=== PATIENT | female | born 1995 | race Hispanic/Latino ===

== ENCOUNTER 2018-03-09 10:25 | Outpatient (CLI) | payer MEDICAID ==
[2018-03-09] MEDS ORDERED: LACTATED RINGERS 1,000 ML ONE (13:23)
== END 2018-03-09 13:37 | disposition home or self-care (01) ==
LOC: TRG 10:25
PROVIDERS: ATTEND Obstetrics & Gynecology
DX: O47.03 False labor before 37 completed weeks of gestation, third trimester (principal); O10.013 Pre-existing essential hypertension complicating pregnancy, third trimester; Z3A.36 36 weeks gestation of pregnancy
CPT/HCPCS: 59025; J7120

== ENCOUNTER 2018-03-30 09:15 | Outpatient (CLI) | payer MEDICAID ==
[2018-03-30] MEDS ORDERED: SUBLIMAZE IV PRN (11:47)
[2018-03-30] MEDS ORDERED: STADOL IV PRN (11:47)
[2018-03-30] MEDS ORDERED: BRETHINE IVP PRN (11:47)
[2018-03-30] MEDS ORDERED: MINERAL OIL PO PRN (11:47)
[2018-03-30] MEDS ORDERED: XYLOCAINE 2% INFILTRATI ONE (11:47)
[2018-03-30] MEDS ORDERED: BRETHINE SUB-Q PRN (11:47)
[2018-03-30] MEDS ORDERED: PITOCin/NS 20 UNIT/1000ML DRIP 20 UNITS/1,000 ML BAG IV SCH (12:00)
[2018-03-30] MEDS ORDERED: PITOCin/NS 30 UNIT/500ML 30 UNITS/500 ML BAG IV SCH ×2 (12:00)
[2018-03-30] MEDS ORDERED: LACTATED RINGERS 1,000 ML IV SCH (12:00)
[2018-03-30 13:32] LABS: Hematocrit 29.3 % (30.3-42.9); Hemoglobin 9.7 gm/dl (10.1-14.3); Mean Corpuscular HGB Conc 33 % (30-34); Mean Corpuscular Volume 71 fl (79-97); Platelet Count 200 K/mm3 (140-440); Red Blood Count 4.16 M/mm3 (3.65-5.03); Red Cell Distribution Width 15.7 % (13.2-15.2)
[2018-03-30 13:33] LABS: Mean Corpuscular Hemoglobin 23 pg (28-32)
--- NOTE | 2018-03-30 18:07 | History and Physical Report ---
History of Present Illness Date of examination: 03/30/18 History of present illness: 22 yo G0101 LMP EDC 03/31/18 @ 36.1 weeks gestation presented to [facility] for r/o labor this am 3cm, ambulated for 2 hours, progressed to 4cm. Currently 5cm. Transfer into care at 36 weeks gestation. History of PIH & IUGR in previous with 36 week induction. Questionable history of throid dysfunction. Abnl pap with ASCUS HPV. GBS negative. 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 Family/Genetic History: hypertension Social history: no significant social history - Obstetrical History Expected Date of Delivery: 03/31/18 Actual Gestation: 39 Week(s) 6 Day(s) : 2 Para: 1 Hx # Term Pregnancies: 0 Number of Pregnancies: 1 Number of Living Children: 1 Medications and Allergies Allergies Allergy/AdvReac Type Severity Reaction Status Date / Time No Known Allergies Allergy Unverified 03/09/18 11:24 Home Medications Medication Instructions Recorded Confirmed Last Taken Type Ferrous Sulfate [Feosol] 325 mg PO BID 03/09/18 03/09/18 1 Day Ago History ~03/08/18 Active Meds: Active Medications Butorphanol Tartrate (Stadol) 2 mg IV Q2H PRN PRN Reason: Pain , Severe (7-10) Ephedrine Sulfate (Ephedrine Sulfate) 10 mg IV Q2M PRN PRN Reason: Hypotension Fentanyl (Sublimaze) 100 mcg IV Q2H PRN PRN Reason: Labor Pain Lactated Ringer's (Lactated Ringers) 1,000 mls @ 125 mls/hr IV DIRECT JOSHUA Oxytocin/Sodium Chloride (Pitocin/Ns 20 Unit/1000ml Drip) 20 units in 1,000 mls @ 125 mls/hr IV DIRECT JOSHUA Oxytocin/Sodium Chloride (Pitocin/Ns 30 Unit/500ml) 30 units in 500 mls @ 1 mls /hr IV TITR JOSHUA; Protocol Oxytocin/Sodium Chloride (Pitocin/Ns 30 Unit/500ml) 30 units in 500 mls @ 4 mls /hr IV TITR JOSHUA; Protocol Mineral Oil (Mineral Oil) 30 ml PO QHS PRN PRN Reason: Constipation Terbutaline Sulfate (Brethine) 0.25 mg SUB-Q ONCE PRN PRN Reason: Hyperstimulation/Hypertonicity Terbutaline Sulfate (Brethine) 0.25 mg IVP ONCE PRN PRN Reason: Hyperstimulation/Hypertonicity Review of Systems All systems: negative - Vital Signs Vital signs: Vital Signs Pulse BP Pulse Ox 111 H 121/84 98 03/09/18 11:16 03/09/18 11:16 03/09/18 11:16 Temp Pulse Resp BP Pulse Ox 98.2 F 84 20 130/65 98 03/30/18 09:24 03/30/18 10:19 03/30/18 09:24 03/30/18 09:24 03/30/18 10:19 - Obstetrical FHR: category 1 Uterine Contraction Monitor Mode: External Cervical Dilatation: 5 Results Result Diagrams: 03/30/18 13:10 Abnormal lab results 03/30/18 Range/Units 13:10 WBC 13.8 H (4.5-11.0) K/mm3 Hgb 9.7 L (10.1-14.3) gm/dl Hct 29.3 L (30.3-42.9) % MCV 71 L (79-97) fl MCH 23 L (28-32) pg RDW 15.7 H (13.2-15.2) % All other labs normal. Assessment and Plan A: IUP at term Active Labor Anemia P: Anticipate Pitocin augmentation
[2018-03-30] MEDS ORDERED: MORPHINE IM ONE (20:31)
[2018-03-30] MEDS ORDERED: PHENERGAN PO ONE (20:32)
--- NOTE | 2018-03-30 20:38 | Progress Note ---
Assessment and Plan O: cervical change from3 to 4cm, remained 4cm since am. No change A: IUP at term False Labor P: D/C home Subjective - Subjective Date of service: 03/30/18 Interval history: 22 yo G0101 LMP EDC 03/31/18 @ 36.1 weeks gestation presented to [facility] for r/o labor this am 3cm, ambulated for 2 hours, progressed to 4cm. Currently 5cm. Transfer into care at 36 weeks gestation. History of PIH & IUGR in previous with 36 week induction. Questionable history of throid dysfunction. Abnl pap with ASCUS HPV. GBS negative. Patient reports: new complaints, movement normal, contractions (irreg), no loss of fluid, no vaginal bleeding Objective - Vital Signs Vital Signs: Vital Signs - 12hr 03/30/18 03/30/18 03/30/18 09:21 09:24 09:26 Temperature 98.2 F Pulse Rate 100 H 89 93 H Respiratory 20 Rate Blood Pressure Blood Pressure 130/65 [Right] O2 Sat by Pulse 97 98 97 Oximetry 03/30/18 03/30/18 03/30/18 09:31 09:36 09:41 Temperature Pulse Rate 91 H 85 87 Respiratory Rate Blood Pressure Blood Pressure [Right] O2 Sat by Pulse 98 98 98 Oximetry 03/30/18 03/30/18 03/30/18 09:46 09:51 09:59 Temperature Pulse Rate 84 91 H 86 Respiratory Rate Blood Pressure Blood Pressure [Right] O2 Sat by Pulse 97 97 98 Oximetry 03/30/18 03/30/18 03/30/18 10:04 10:09 10:14 Temperature Pulse Rate 95 H 92 H 85 Respiratory Rate Blood Pressure Blood Pressure [Right] O2 Sat by Pulse 98 97 97 Oximetry 03/30/18 03/30/18 10:19 20:00 Temperature Pulse Rate 84 97 H Respiratory Rate Blood Pressure 143/86 Blood Pressure [Right] O2 Sat by Pulse 98 Oximetry - Exam Breasts: deferred Abdomen: Present: normal appearance FHR: category 1 Uterine Contraction Monitor Mode: External Cervical Dilatation: 4 Uterine Contraction Pattern: Irregular Uterine Tone Measurement Phase: Resting - Labs Labs: Abnormal Labs 03/30/18 13:10 WBC 13.8 H Hgb 9.7 L Hct 29.3 L MCV 71 L MCH 23 L RDW 15.7 H Laboratory Results - last 24 hr 03/30/18 03/30/18 13:10 13:10 WBC 13.8 H RBC 4.16 Hgb 9.7 L Hct 29.3 L MCV 71 L MCH 23 L MCHC 33 RDW 15.7 H Plt Count 200 Blood Type A POSITIVE Antibody Screen Negative
--- NOTE | 2018-03-30 20:46 | Discharge Summary ---
Providers - Providers Date of discharge: 03/30/18 Attending physician: KEL MANN MD Primary care physician: KEL MANN MD Hospitalization Reason for admission: IUP at term, other (false labor) Condition at discharge: Good Disposition: DC-01 TO HOME OR SELFCARE Plan - Provider Discharge Summary Activity: routine Additional instructions: [] Smoking cessation referral if applicable(refer to patient education folder for contact #) [] Refer to [facility] Booklet Call your doctor immediately for: * Fever > 100.5 * Heavy vaginal bleeding ( >1 pad per hour) * Severe persistent headache * Shortness of breath * Reddened, hot, painful area to leg or breast * Drainage or odor from incision. * Keep incision clean and dry at all times and follow doctor's instructions regarding bathing/showering - Follow up plan Follow up: KEL MANN MD [Primary Care Provider] - (4 days)
[2018-03-31 13:10] VITALS: BP 131/68
== END 2018-03-30 21:40 | disposition home or self-care (01) ==
LOC: TRG 09:15
PROVIDERS: ATTEND Obstetrics & Gynecology
DX: O47.03 False labor before 37 completed weeks of gestation, third trimester (principal); Z3A.39 39 weeks gestation of pregnancy; Z86.2 Personal history of diseases of the blood and blood-forming organs and certain disorders involving the immune mechanism
CPT/HCPCS: 36415; 85027; 86850; 86900; 86901; J0595; J2270; Q0169

== ENCOUNTER 2018-03-31 03:23 | Inpatient (IN) | payer MEDICAID ==
[2018-03-31] MEDS ORDERED: MINERAL OIL PO PRN (04:14)
[2018-03-31] MEDS ORDERED: BRETHINE SUB-Q PRN (04:14)
[2018-03-31] MEDS ORDERED: BRETHINE IVP PRN (04:14)
[2018-03-31] MEDS ORDERED: XYLOCAINE 2% INFILTRATI ONE (04:14)
[2018-03-31] MEDS ORDERED: LACTATED RINGERS 1,000 ML ONE (04:16)
[2018-03-31 04:39] LABS: Hematocrit 32.7 % (30.3-42.9); Hemoglobin 10.6 gm/dl (10.1-14.3); Mean Corpuscular HGB Conc 33 % (30-34); Mean Corpuscular Volume 72 fl (79-97); Platelet Count 235 K/mm3 (140-440); Red Blood Count 4.56 M/mm3 (3.65-5.03); Red Cell Distribution Width 15.8 % (13.2-15.2)
[2018-03-31 04:40] LABS: Mean Corpuscular Hemoglobin 23 pg (28-32)
[2018-03-31] MEDS: LACTATED RINGERS 1,000 ML IV SCH ×2 (04:45→05:40)
[2018-03-31] MEDS ORDERED: ZOFRAN IV ONE (04:52)
[2018-03-31] MEDS ORDERED: STADOL IV PRN (04:52)
[2018-03-31] MEDS ORDERED: PITOCin/NS 20 UNIT/1000ML DRIP 20 UNITS/1,000 ML BAG IV SCH ×2 (05:00→17:09)
[2018-03-31] MEDS ORDERED: SUBLIMAZE IV ONE (05:18)
[2018-03-31] MEDS ORDERED: NARCAN 2 MG/2 ML ONE (05:26)
--- NOTE | 2018-03-31 06:43 | History and Physical Report ---
History of Present Illness Date of examination: 03/31/18 Date of admission: 03/31/18 03:54 History of present illness: 22 yo EDC 03/31/18 @ 40 weeks, sent home from triage last night after prolonged wait for from and no cervical change with sedation. Arrived at 0400 7- 8cm. Currently AL/intact, awaiting an epidural. Transfer into care at 36 weeks gestation. History of PIH & IUGR in previous with 36 week induction. Questionable history of throid dysfunction. Abnl pap with ASCUS HPV. GBS negative. 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 Family/Genetic History: diabetes, hypertension Social history: - Obstetrical History Expected Date of Delivery: 03/31/18 Actual Gestation: 40 Week(s) 0 Day(s) : 2 Para: 1 Hx # Term Pregnancies: 0 Number of Pregnancies: 1 Number of Living Children: 1 Medications and Allergies Allergies Allergy/AdvReac Type Severity Reaction Status Date / Time No Known Allergies Allergy Unverified 03/09/18 11:24 Home Medications Medication Instructions Recorded Confirmed Last Taken Type Ferrous Sulfate [Feosol] 325 mg PO BID 03/09/18 03/31/18 03/29/18 11:00 History Active Meds: Active Medications Butorphanol Tartrate (Stadol) 2 mg IV Q2H PRN PRN Reason: Labor Pain Ephedrine Sulfate (Ephedrine Sulfate) 10 mg IV Q2M PRN PRN Reason: Hypotension Lactated Ringer's (Lactated Ringers) 1,000 mls @ 125 mls/hr IV DIRECT JOSHUA Last Admin: 03/31/18 05:40 Dose: 125 mls/hr Oxytocin/Sodium Chloride (Pitocin/Ns 20 Unit/1000ml Drip) 20 units in 1,000 mls @ 125 mls/hr IV DIRECT JOSHUA Mineral Oil (Mineral Oil) 30 ml PO QHS PRN PRN Reason: Constipation Terbutaline Sulfate (Brethine) 0.25 mg SUB-Q ONCE PRN PRN Reason: Hyperstimulation/Hypertonicity Terbutaline Sulfate (Brethine) 0.25 mg IVP ONCE PRN PRN Reason: Hyperstimulation/Hypertonicity Review of Systems All systems: negative - Vital Signs Vital signs: Vital Signs Pulse BP 134 H 132/84 03/31/18 03:41 03/31/18 03:41 Temp Pulse Resp BP Pulse Ox 97.9 F 115 H 133/83 93 03/31/18 03:45 03/31/18 05:02 03/31/18 04:42 03/31/18 05:02 - Obstetrical FHR: category 1 Uterine Contraction Monitor Mode: External Cervical Dilatation: 9.9 Cervical Effacement Percentage: 100 Uterine Contraction Frequency (min): 3 Uterine Contraction Pattern: Regular Uterine Tone Measurement Phase: Resting Uterine Contraction Intensity: Strong/Firm Results Result Diagrams: 03/31/18 04:05 Abnormal lab results 03/31/18 Range/Units 04:05 WBC 20.5 H (4.5-11.0) K/mm3 MCV 72 L (79-97) fl MCH 23 L (28-32) pg RDW 15.8 H (13.2-15.2) % All other labs normal. Assessment and Plan A: IUP at term Transitional Labor P: Epidural
[2018-03-31] MEDS ORDERED: METHERGINE IM ONE ×2 (07:39→08:00)
--- NOTE | 2018-03-31 07:44 | Event Note ---
Date: 03/31/18 Pt just received epidural. SVE: /-1. AROM- clear. Category II tracing. Continue routine intrapartum care.
[2018-03-31] MEDS ORDERED: PITOCin/NS 30 UNIT/500ML 30,000 MILLIUNITS/500 ML BAG IV ONE (07:46)
[2018-03-31] MEDS ORDERED: NARCAN 2 MG/2 ML IV PRN (08:00)
[2018-03-31] MEDS ORDERED: PITOCin/NS 30 UNIT/500ML 30 UNITS/500 ML BAG IV SCH (08:00)
[2018-03-31] MEDS ORDERED: XYLOCAINE MPF 2% ONE ×2 (08:29→12:31)
[2018-03-31] MEDS ORDERED: fentaNYL-BUPIV 2 MCG/ML-0.125% 200 MCG/100 ML BAG EPIDURAL SCH (08:30)
[2018-03-31] MEDS ORDERED: PEPCID IV SCH (10:00)
--- NOTE | 2018-03-31 13:55 | Procedure Note ---
OB Delivery Note - Delivery Date of Delivery: 03/31/18 Surgeon: LUCHO HOYT Estimated blood loss: 500cc - Vaginal Delivery presentation: vertex Delivery position: OA Intrapartum events: PROM->1hr before delivery, meconium, mult.variable deceleratio Delivery induction: none Delivery augmentation: rupture of membranes, pitocin Delivery monitor: external FHT, external uterine Route of delivery: Delivery placenta: spontaneous Delivery cord: 3 umbilical vessels, other (Body cord x 1 ) Episiotomy: none Delivery laceration: none Anesthesia: epidural Delivery comments: Pt progressed to complete/complete/+2 and pushed to delivery of a viable male via over intact perineum under epidural anaesthesia. Head delivered in ELIZA position, followed by shoulders and body. Arm cord x 1. Terminal meconium. placed on maternal abdomen and bulb suctioned. Cord clamped and cut and handed to RN in attendance. Placenta delivered spontaneously (3VC, intact). Vagina and perineum explored. No lacerations. EBL 500 mL. Methergine 0.2 mg IM given prophylactically. - Infant A at 1 minute: 7 at 5 minutes: 9 Infant Gender: Male (3299g (7lb 4 oz))
[2018-03-31] MEDS ORDERED: TYLENOL PO ONE (14:30)
[2018-03-31] MEDS ORDERED: TYLENOL PO PRN (17:09)
[2018-03-31] MEDS ORDERED: PHENERGAN PR PRN (17:09)
[2018-03-31] MEDS ORDERED: DERMOPLAST TP PRN (17:09)
[2018-03-31] MEDS ORDERED: DULCOLAX PR PRN (17:09)
[2018-03-31] MEDS ORDERED: MILK OF MAGNESIA PO PRN (17:09)
[2018-03-31] MEDS ORDERED: TUCKS PAD TP PRN (17:09)
[2018-03-31] MEDS ORDERED: LANSINOH TP PRN ×2 (17:09)
[2018-03-31] MEDS ORDERED: PHENERGAN PO PRN (17:09)
[2018-03-31] MEDS ORDERED: BENADRYL PO PRN (17:09)
[2018-03-31] MEDS ORDERED: SODIUM CHLORIDE FLUSH SYRINGE 10 ML IV NR (17:09)
[2018-03-31] MEDS ORDERED: ZOFRAN IV PRN (17:09)
[2018-03-31] MEDS: MOTRIN PO SCH (17:50)
[2018-03-31] MEDS: NORCO 5/325 PO PRN (22:40)
[2018-03-31] MEDS: FEOSOL PO SCH (22:40)
[2018-03-31] MEDS: COLACE PO SCH (22:40)
--- NOTE | 2018-03-31 23:15 | Event Note ---
Date: 03/31/18 Called by nurse that patient experiencing headache post delivery. On arrival to bedside, patient laying in bed initially asleep but woke after speaking briefly to her . She did not appear to be in distress. She states that pain is in back and sinuses. She does not have any history of headaches. Epidural insertion note does not indicate any difficulty with placement or "wet tap" with epidural needle. She states that her epidural was not very effective in treating labor pain however and she did have to strain a bit during delivery. For now I think it is reasonable to watch her conservatively since she is resting comfortably in bed. She also had just received 2 narco tabs from nurse. I told her if pain worsens or she develops any symptoms of dizziness, blurry vision, or pain not relieved with positioning/meds to let us know and we will try other treatment. At this time I do not think proceeding to blood patch is warranted since presentation is not typical of spinal headache and there was no indication of wet tap.
[2018-04-01 04:27] LABS: Hematocrit 25.3 % (30.3-42.9); Hemoglobin 8.1 gm/dl (10.1-14.3)
[2018-04-01] MEDS: NORCO 5/325 PO PRN (04:35)
[2018-04-01] MEDS: MOTRIN PO SCH ×3 (04:35→16:41)
[2018-04-01] MEDS: COLACE PO SCH ×2 (11:39→22:15)
[2018-04-01] MEDS: FEOSOL PO SCH ×2 (11:39→22:15)
[2018-04-01] MEDS: FIORICET PO PRN (14:03)
[2018-04-01] MEDS ORDERED: M-M-R II VACCINE SUB-Q ONE (14:07)
[2018-04-01] MEDS ORDERED: BOOSTRIX IM ONE (14:07)
--- NOTE | 2018-04-01 15:38 | Progress Note ---
Assessment and Plan A: PPD#1 s/p at term, Asymptomatic anemia, Headache P: Pt had initial anesthesia evaluation yesterday but headache persists. Plan to contact anesthesia for reevaluation. Add Fioricet to medication regimen PRN headache. Subjective - Subjective Date of service: 04/01/18 Principal diagnosis: s/p at term Interval history: Pt reports severe headache, constant since removal of her epidural. Associated with a "wind" sound in her left ear. She has never experienced this before. Patient reports: appetite normal, voiding normally, pain well controlled, ambulating normally, no nauseated Bryson: doing well Objective - Vital Signs Latest vital signs: Vital Signs Temp Pulse Resp BP BP Pulse Ox 04/01/18 11:56 97.6 F 63 16 105/63 98 04/01/18 07:48 97.8 F 72 20 126/57 97 04/01/18 01:24 97.8 F 79 18 120/75 97 03/31/18 21:47 98.0 F 92 H 18 122/66 97 03/31/18 17:50 20 03/31/18 16:54 97.6 F 78 18 126/80 Intake and Output 04/01/18 04/01/18 04/01/18 06:59 14:59 22:59 Intake Total 240 360 Balance 240 360 Intake: Oral 240 360 Other: Total, Intake Amount 240 360 # Voids Void 2 1 - Exam Breasts: Present: deferred Cardiovascular: Present: Regular rate Lungs: Present: Clear to auscultation Abdomen: Present: soft (obese ) Uterus: Present: fundal height below umbilicus Extremities: Present: normal - Labs Labs: Abnormal lab results 04/01/18 Range/Units 03:58 Hgb 8.1 L (10.1-14.3) gm/dl Hct 25.3 L D (30.3-42.9) %
[2018-04-01] MEDS: PERCOCET 5/325 PO PRN (19:58)
[2018-04-02] MEDS: FIORICET PO PRN ×2 (00:11→08:09)
[2018-04-02] MEDS: PERCOCET 5/325 PO PRN ×2 (04:15→12:09)
[2018-04-02] MEDS: MOTRIN PO SCH (12:08)
--- NOTE | 2018-04-02 12:08 | Progress Note ---
Subjective Date of service: 04/02/18 Principal diagnosis: s/p at term Interval history: Called by RN with patient complaint of ongoing headache since delivery for which an epidural was placed for labor analgesia. Pain has been constant/ worsening since 03/31 despite PO hydration, caffeine via soft drinks and the addition of foricet to pain regimen. Pain in located in the frontal and occipital regions, relieved by lying flat and worsened with sitting or standing. She has spoken to anesthesiologist on 03/31 and 04/01 regarding possible epidural blood patch treatment. Today discussed the procedure and associated risks, including bleeding, infection, nerve damage. Also explained that if symptoms are not 2/2 post-dural puncture headache, she is unlikely to get relief from blood patch. Discussed other non-invasive options including medications and continued monitoring of symptoms at home. She would like to proceed with blood patch. Objective - Constitutional Vitals: Vital Signs - 12hr 04/02/18 04/02/18 04/02/18 00:11 00:45 04:15 Temperature 1198 F H Pulse Rate 74 Respiratory 20 20 18 Rate Blood Pressure Blood Pressure 122/72 [Left] O2 Sat by Pulse 98 Oximetry 04/02/18 04/02/18 07:57 08:09 Temperature 98.3 F Pulse Rate 81 Respiratory 20 20 Rate Blood Pressure 125/57 Blood Pressure [Left] O2 Sat by Pulse 97 Oximetry - Labs CBC & Chem 7: 04/01/18 03:58
--- NOTE | 2018-04-02 13:03 | Progress Note ---
Assessment and Plan A: PPD#1 s/p at term, Asymptomatic anemia, Headache P: Blood patch by Anesthesia Dr Patel Continue to monitor. If pt improved, consider discharge later today. Subjective - Subjective Date of service: 04/02/18 Principal diagnosis: s/p at term Interval history: Late entry. Pt reports that her headaches continue, and that she would like a blood patch. Otherwise she has no complaints. Patient reports: appetite normal, voiding normally, pain well controlled, ambulating normally : doing well Objective - Vital Signs Latest vital signs: Vital Signs Temp Pulse Resp BP BP Pulse Ox 04/02/18 12:09 20 04/02/18 12:08 20 04/02/18 08:09 20 04/02/18 07:57 98.3 F 81 20 125/57 97 04/02/18 04:15 18 04/02/18 00:45 1198 F H 74 20 122/72 98 04/02/18 00:11 20 04/01/18 19:58 18 04/01/18 16:30 97.3 F L 73 16 128/80 96 Intake and Output 04/01/18 04/02/18 04/02/18 22:59 06:59 14:59 Intake Total 240 240 Balance 240 240 Intake: Oral 240 240 Other: Total, Intake Amount 240 240 # Voids Void 1 1 - Exam Breasts: Present: deferred Cardiovascular: Present: Regular rate Lungs: Present: Clear to auscultation Abdomen: Present: soft (obese ) Uterus: Present: fundal height below umbilicus Extremities: Present: normal
--- NOTE | 2018-04-02 13:04 | Discharge Summary ---
Providers - Providers Date of Admission: 03/31/18 03:54 Date of discharge: 04/02/18 Attending physician: KEL MANN MD 03/31/18 17:09 Consult to Wireless Sales Representative [CONS] Routine Reason For Exam: assistance with , SNS Primary care physician: KEL MANN MD Hospitalization Reason for admission: active labor Delivery: Procedure details: Please see delivery note. Episiotomy: none Laceration: none Other procedures: none complications: spinal headache Discharge diagnosis: IUP at term delivered baby: male Hospital course: The patient was admitted in active labor and went on to have a vaginal delivery which she tolerated well. Her postoperative course was complicated by a spinal headache which was treated with blood patch was significant improvement in her symptoms. She will follow up in the office in 4 weeks. Condition at discharge: Stable Disposition: DC-01 TO HOME OR SELFCARE - Discharge Diagnoses (1) Term of male Status: Acute (2) Anemia Status: Acute Qualifiers: Anemia type: unspecified type Qualified Code(s): D64.9 - Anemia, unspecified (3) Spinal headache complicating labor and delivery, delivered Status: Acute Plan - Discharge Medications Prescriptions: Butalb/Acetamin/Caff 50-325-40 [Fioricet] 1 tab PO Q6HR PRN #30 tab PRN Reason: Headache Ferrous Sulfate [Feosol 325 MG tab] 325 mg PO BID #60 tablet HYDROcodone/APAP 5-325 [[place] 5/325] 1 each PO Q6HR PRN #20 tablet PRN Reason: Pain Ibuprofen [Motrin] 800 mg PO Q8HR PRN #30 tablet PRN Reason: Pain , Severe (7-10) - Provider Discharge Summary Activity: routine, no sex for 6 weeks, no heavy lifting 4 weeks, no strenuous exercise Diet: routine Instructions: routine Additional instructions: [] Smoking cessation referral if applicable(refer to patient education folder for contact #) [] Refer to [facility] Booklet Call your doctor immediately for: * Fever > 100.5 * Heavy vaginal bleeding ( >1 pad per hour) * Severe persistent headache * Shortness of breath * Reddened, hot, painful area to leg or breast * Drainage or odor from incision. * Keep incision clean and dry at all times and follow doctor's instructions regarding bathing/showering - Follow up plan Follow up: KEL MANN MD [Primary Care Provider] - 05/01/18 (Please call to schedule exam )
[2018-04-02 17:15] VITALS: BP 136/85
== END 2018-04-02 17:00 | disposition home or self-care (01) | DRG 774 ==
LOC: TRG 03:23 → LD 03:54 → OB 15:31
PROVIDERS: ADMIT Obstetrics & Gynecology; ATTEND Obstetrics & Gynecology
PROC: 10E0XZZ Delivery of Products of Conception, External Approach (ICD-10-PCS; principal; 2018-03-31)
PROC: 3E0R3BZ Introduction of Anesthetic Agent into Spinal Canal, Percutaneous Approach (ICD-10-PCS; 2018-03-31)
PROC: 00HU33Z Insertion of Infusion Device into Spinal Canal, Percutaneous Approach (ICD-10-PCS; 2018-03-31)
PROC: 3E0234Z Introduction of Serum, Toxoid and Vaccine into Muscle, Percutaneous Approach (ICD-10-PCS; 2018-04-01)
DX: O42.02 Full-term premature rupture of membranes, onset of labor within 24 hours of rupture (principal); O74.5 Spinal and epidural anesthesia-induced headache during labor and delivery; Z3A.40 40 weeks gestation of pregnancy; Z37.0 Single live birth; O77.0 Labor and delivery complicated by meconium in amniotic fluid; O76 Abnormality in fetal heart rate and rhythm complicating labor and delivery; O99.02 Anemia complicating childbirth; D64.9 Anemia, unspecified; Z23 Encounter for immunization
CPT/HCPCS: 36415; 85014; 85018; 85027; 86592; 86850; 86900; 86901; J2210; J2310; J2405; J2590; J3010; J7120

== ENCOUNTER 2019-07-31 07:28 | Emergency (ER) | payer SELFPAY ==
[2019-07-31 07:43] VITALS: BP 143/88
--- NOTE | 2019-07-31 09:38 | Emergency Department Report ---
Chief Complaint: Upper Respiratory Infection Stated Complaint: FLU SX Time Seen by Provider: 07/31/19 08:58 - HPI History of Present Illness: This is a 23-year-old female who presents to the emergency room with cough and chills for 2 days. Patient reports vomiting yesterday which is now resolved. She is currently taking Tylenol cold and flu with minimal improvement of symptoms. States fever resolved yesterday. She reports increase fluid intake because she was concerned of possibly having the flu. She denies chest pain, palpitations, orthopnea, shortness of breath, wheezing, or myalgia. - ROS Review of Systems: ROS: Stated complaint: FLU SX Other details as noted in HPI Constitutional: chills denies: fever ENT: congestion. denies: ear pain, throat pain Respiratory: cough. denies: shortness of breath, wheezing Cardiovascular: denies: chest pain, palpitations Endocrine: no symptoms reported Gastrointestinal: denies: abdominal pain, nausea, diarrhea Musculoskeletal: denies: back pain, joint swelling, arthralgia, myalgia. Skin: denies: rash, lesions Neurological: denies: weakness, paresthesias, headache. Psychiatric: denies: anxiety, depression - Exam Vital Signs: Vital Signs 07/31/19 07/31/19 07:42 09:16 Temperature 99.2 F Pulse Rate 117 H 92 H Respiratory 16 18 Rate Blood Pressure 143/88 O2 Sat by Pulse 96 Oximetry Physical Exam: - Exam General: Vital signs noted. No distress. Alert and acting appropriately. HEENT: Yes Moist Mucous Membranes, Yes Rhinorrhea (mild congested with clear discharge), No Pharyngeal Erythema (uvula midline), No Pharyngeal Exudates, No Conjuctival Injection, No Frontal Tenderness, No Maxillary Tenderness Ear: Neither TM Bulge, Neither TM Erythema, Neither EAC Pain, Neither EAC Discharge Neck: Yes Supple, No Adenopathy Lungs: Yes Good Air Exchange, No Wheezes, No Ronchi, No Stridor, No Cough, No Labored Respirations, No Retractions, No Use of Accessory Muscles, No Other Abnormal Lung Sounds Heart: Yes Regular, No Murmur Abdomen: Yes Normal Bowel Sounds, No Tenderness, No Peritoneal Signs Skin: No Rash, No Edema Neurologic: Alert and oriented, no deficits. Musculoskeletal: Unremarkable. MSE screening note: Focused history and physical exam performed. Due to findings the following was ordered: ED Medical Decision Making - Medical Decision Making 23 y.o. female that presents with upper respiratory symptoms for 2 days. Patient examined by me and stable. VSS and patient in no acute distress. No history of immunocompromise. Nontoxic appearance. Patient no trismus, no airway compromise. Able to tolerate by mouth. Denies fever and cough. 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 Start short course of antibiotics, NSAIDs, and decongestant. Reviewed results with patient. Discharge home with prompt outpatient PCP follow up; return precautions discussed. ED Disposition for MSE Disposition: MED SCREENING EXAM-LEFT Condition: Stable Instructions: Upper Respiratory Infection (ED), Cold Symptoms (ED) Additional Instructions: Increase fluid intake and rest. Wash hands frequently. Continue taking Tylenol or ibuprofen to control fever. F/U with Primary Care Provider. Return to ER if fever, shortness of breath, or difficulty breathing after 48 hours of supportive care. Referrals: [facility] [place] [Outside] - 3-5 Days [facility] [Outside] - 3-5 Days [facility] [Outside] - 3-5 Days Forms: Accompanied Note, Work/School Release Form(ED) Time of Disposition: 09:34
== END 2019-07-31 09:49 | disposition left against medical advice (07) ==
LOC: ED 07:28
DX: J06.9 Acute upper respiratory infection, unspecified (principal)
CPT/HCPCS: 99282